=== PATIENT | male | born 1965 | race Caucasian/White ===

== ENCOUNTER 2018-02-21 10:51 | Emergency (ER) | payer BC ==
[~2018-02-21 10:51] MED LIST changes: -FOLI-68 PO; -MULT-1379 PO; -NIC10R INH; -NICOTROL CARTRIDGE PO; -THIA100T2 PO; -TRAZ150T8 PO
[2018-02-21] MEDS ORDERED: NS(*) 0.9% 1000 ML BAG 1,000 ML IV ONE ×2 (11:20→13:05)
[2018-02-21] MEDS ORDERED: LORazepam 2 MG/ML VIAL IVP ONE ×2 (11:20→12:40)
--- NOTE | 2018-02-21 11:22 | ER Report ---
History and Physical Time Seen By MD: 11:18 Hx. of Stated Complaint: EMS called for pt c/o L CP followed by collapse and generalized tonic/clonic activity with confusion afterwards. HPI/ROS CHIEF COMPLAINT: Brief loss of consciousness HISTORY OF PRESENT ILLNESS: This is a 52-year-old male who presents to the emergency department via EMS for a brief loss of consciousness. 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 Patient states that this is the typical pattern for his hypoglycemic episodes. According to EMS he had some chest pain and generalized tonic-clonic movement as well. When they did check his blood sugar it was in the 50s, although he was ambulating at this time and able to manage a basic conversation. While I'm talking to the patient he also states that he does drink daily, at least a sixpack and at least 3 ounces of tequila a day. He also smokes. Patient is also tearful, I did talk to the patient about suicidal thoughts, he's had thoughts in the past has also attempted suicide with a pistol but was unsuccessful. The patient states that yesterday and today he's had thoughts of shooting himself, he doesn't have access to firearms at his house. He states that today he locked his firearms up because he does not trust himself with the firearms. Patient is very tearful. The patient states that his last alcohol intake was around 2:30 or 3:00 this morning. He denies fevers or chills. He is dizzy and feels lightheaded. He states that he also hears voices. REVIEW OF SYSTEMS: Constitutional: No fever, no chills. Eyes: No discharge. ENT: No sore throat. Cardiovascular: As above. Respiratory: No cough, no shortness of breath. Gastrointestinal: No abdominal pain, no vomiting. Genitourinary: No hematuria. Musculoskeletal: No back pain. Skin: No rashes. Neurological: As above. Psych: As above. Allergies: Coded Allergies: No Known Drug Allergies (Unverified , 02/21/18) Home Meds Discontinued Scripts Cephalexin Monohydrate (CEPHALEXIN) 500 Mg Cap, 500 MG PO Q6H, #20 CAP 0 Refills Prov:LURDES LUNSFORD MD 01/21/17 Past Medical/Surgical History The patient has a past medical and surgical history of seizures, secondary to hypoglycemic events, arthritis, depression, anxiety, suicide attempt, cigarette smoking, daily alcohol consumption. Reviewed Nurses Notes: Yes Hx Smoking: Yes (3 DAILY) Smoking Status: Current: Every Day Smoker Hx Substance Use Disorder: Yes (MARIJUANA-RECREATIONAL) Hx Alcohol Use: Yes (DAILY 6 PACK) Constitutional Vital Sign - Last 24 Hours 02/21/18 02/21/18 02/21/18 02/21/18 10:51 11:01 11:06 11:08 Temp 98.3 Pulse ??? 86 80 Resp 23 16 B/P (MAP) 123/87 (99) 123/87 Pulse Ox 95 95 O2 Delivery Room Air 02/21/18 02/21/18 02/21/18 02/21/18 11:21 11:36 11:51 11:56 Pulse 87 96 82 77 Resp 16 13 23 11 Pulse Ox 89 91 90 91 02/21/18 02/21/18 02/21/18 02/21/18 12:11 12:16 12:21 12:26 Pulse 83 86 85 89 Resp 17 21 11 17 Pulse Ox 89 90 89 90 02/21/18 02/21/18 02/21/18 02/21/18 12:31 12:36 12:41 12:46 Pulse 85 88 100 92 Resp 10 10 11 12 B/P (MAP) 124/74 (91) Pulse Ox 92 92 94 92 02/21/18 02/21/18 02/21/18 02/21/18 14:25 14:25 14:40 14:55 Pulse 86 83 88 82 Resp 16 B/P (MAP) 139/87 (104) Pulse Ox 95 95 90 93 O2 Delivery Room Air 02/21/18 02/21/18 02/21/18 02/21/18 15:10 15:25 15:40 15:55 Pulse 86 86 85 90 Pulse Ox 92 94 93 91 02/21/18 16:10 Pulse 91 Pulse Ox 95 Physical Exam General Appearance: The patient is alert, has no immediate need for airway protection and no signs of toxicity, unkempt, shaky and tearful. Eyes: Pupils equal and round no pallor or injection. EOMs intact. 1-2 beats nystagmus in the right and left lateral gaze. ENT, Mouth: Mucous membranes are dry. Respiratory: There are no retractions, lungs are clear to auscultation. Cardiovascular: Regular rate and rhythm, no murmurs, clicks or rubs. Gastrointestinal: Abdomen is soft and non tender, no masses, bowel sounds normal. Neurological: Alert and oriented 4. Moving all extremities. Following all commands. No focal neuro deficits. Skin: Warm and dry, no rashes. Musculoskeletal: Neck is supple non tender. Extremities are nontender, nonswollen and have full range of motion. Psych: Patient making intermittent and I contact, tearful during our conversations. His voice does fluctuate in intensity however not in a threatening way. Patient's hands are his lap, picking at his thumbs and fingers, will move his legs occasionally, when he becomes tearful begins to curl up in a semi- type position. We'll then relax and began to interact again. DIFFERENTIAL DIAGNOSIS: After history and physical exam differential diagnosis was considered for chest pain including but not limited to myocardial ischemia, anxiety, pericarditis pulmonary embolus, chest wall pain, pleural inflammation and pulmonary infectious causes.weakness including but not limited to electrolyte abnormality, depression, anxiety, CVA, spinal cord abnormality, and infectious causes. Suicidal ideation. Medical Decision Making Data Points Result Diagram: 02/21/18 1050 02/21/18 1050 Laboratory Hematology Test 02/21/18 10:50 02/21/18 12:00 02/21/18 14:21 Red Blood Count 5.29 M/uL (4.00-5.60) Mean Corpuscular Volume 100.1 fL (80.0-96.0) Mean Corpuscular Hemoglobin 33.9 pg (26.0-33.0) Mean Corpuscular Hemoglobin Concent 33.9 g/dL (32.0-36.0) Red Cell Distribution Width 14.0 % (11.5-14.5) Mean Platelet Volume 9.8 fL (7.2-11.1) Neutrophils (%) (Auto) 76.0 % (39.4-72.5) Lymphocytes (%) (Auto) 15.8 % (17.6-49.6) Monocytes (%) (Auto) 6.5 % (4.1-12.4) Eosinophils (%) (Auto) 1.2 % (0.4-6.7) Basophils (%) (Auto) 0.5 % (0.3-1.4) Nucleated RBC Relative Count (auto) 0.1 /100WBC Neutrophils # (Auto) 8.5 K/uL (2.0-7.4) Lymphocytes # (Auto) 1.8 K/uL (1.3-3.6) Monocytes # (Auto) 0.7 K/uL (0.3-1.0) Eosinophils # (Auto) 0.1 K/uL (0.0-0.5) Basophils # (Auto) 0.1 K/uL (0.0-0.1) Nucleated RBC Absolute Count (auto) 0.01 K/uL Sodium Level 145 mmol/L (137-145) Potassium Level 4.1 mmol/L (3.5-5.0) Chloride Level 105 mmol/L (98-107) Carbon Dioxide Level 21 mmol/L (22-30) Blood Urea Nitrogen 22 mg/dl (9-21) Creatinine 1.00 mg/dl (0.66-1.25) Glomerular Filtration Rate Calc > 60.0 Random Glucose 74 mg/dl (75-110) Calcium Level 9.6 mg/dl (8.4-10.2) Magnesium Level 2.5 mg/dl (1.7-2.2) Total Bilirubin 0.5 mg/dl (0.2-1.3) Aspartate Amino Transf (AST/SGOT) 30 U/L (0-35) Alanine Aminotransferase (ALT/SGPT) 35 U/L (0-56) Alkaline Phosphatase 74 U/L (0-126) Troponin I < 0.012 ng/ml Total Protein 7.5 g/dl (6.3-8.2) Albumin 4.6 g/dl (3.5-5.0) Salicylates Level < 10 mg/L Salicylate Last Dose Date unk Acetaminophen Level < 10 ug/ml Serum Alcohol 81 mg/dl Whole Blood Glucose 148 mg/DL (75-110) Urine Color Yellow Urine Clarity Clear Urine pH 6.0 pH (4.8-9.5) Urine Specific [place] 1.013 Urine Protein Negative mg/dL (NEGATIVE) Urine Glucose (UA) Negative mg/dL (NEGATIVE) Urine Ketones 20 mg/dL (NEGATIVE) Urine Blood Small (NEGATIVE) Urine Nitrite Negative (NEGATIVE) Urine Bilirubin Negative (NEGATIVE) Urine Urobilinogen Negative mg/dL (0.2-1.9) Urine Leukocyte Esterase Negative (NEGATIVE) Urine RBC 5 /HPF (0-2/HPF) Urine WBC <1 /HPF (0-5/HPF) Urine Squamous Epithelial Cells None /LPF (</=FEW) Urine Bacteria Negative /HPF (NONE-FEW) Urine Mucus Few /HPF (NONE-FEW) Urine Opiates Screen Negative Urine Barbiturates Screen Negative Ur Tricyclic Antidepressants Screen Negative Urine Phencyclidine Screen Negative Urine Amphetamines Screen Negative Urine Benzodiazepines Screen Negative Urine Cocaine Screen Negative Urine Cannabinoids Screen Positive Chemistry Test 02/21/18 10:50 02/21/18 12:00 02/21/18 14:21 White Blood Count 11.2 k/uL (4.5-11.0) Red Blood Count 5.29 M/uL (4.00-5.60) Hemoglobin 17.9 g/dL (14.0-18.0) Hematocrit 53.0 % (42.0-52.0) Mean Corpuscular Volume 100.1 fL (80.0-96.0) Mean Corpuscular Hemoglobin 33.9 pg (26.0-33.0) Mean Corpuscular Hemoglobin Concent 33.9 g/dL (32.0-36.0) Red Cell Distribution Width 14.0 % (11.5-14.5) Platelet Count 278 K/uL (150-450) Mean Platelet Volume 9.8 fL (7.2-11.1) Neutrophils (%) (Auto) 76.0 % (39.4-72.5) Lymphocytes (%) (Auto) 15.8 % (17.6-49.6) Monocytes (%) (Auto) 6.5 % (4.1-12.4) Eosinophils (%) (Auto) 1.2 % (0.4-6.7) Basophils (%) (Auto) 0.5 % (0.3-1.4) Nucleated RBC Relative Count (auto) 0.1 /100WBC Neutrophils # (Auto) 8.5 K/uL (2.0-7.4) Lymphocytes # (Auto) 1.8 K/uL (1.3-3.6) Monocytes # (Auto) 0.7 K/uL (0.3-1.0) Eosinophils # (Auto) 0.1 K/uL (0.0-0.5) Basophils # (Auto) 0.1 K/uL (0.0-0.1) Nucleated RBC Absolute Count (auto) 0.01 K/uL Glomerular Filtration Rate Calc > 60.0 Calcium Level 9.6 mg/dl (8.4-10.2) Magnesium Level 2.5 mg/dl (1.7-2.2) Total Bilirubin 0.5 mg/dl (0.2-1.3) Aspartate Amino Transf (AST/SGOT) 30 U/L (0-35) Alanine Aminotransferase (ALT/SGPT) 35 U/L (0-56) Alkaline Phosphatase 74 U/L (0-126) Troponin I < 0.012 ng/ml Total Protein 7.5 g/dl (6.3-8.2) Albumin 4.6 g/dl (3.5-5.0) Salicylates Level < 10 mg/L Salicylate Last Dose Date unk Acetaminophen Level < 10 ug/ml Serum Alcohol 81 mg/dl Whole Blood Glucose 148 mg/DL (75-110) Urine Color Yellow Urine Clarity Clear Urine pH 6.0 pH (4.8-9.5) Urine Specific [place] 1.013 Urine Protein Negative mg/dL (NEGATIVE) Urine Glucose (UA) Negative mg/dL (NEGATIVE) Urine Ketones 20 mg/dL (NEGATIVE) Urine Blood Small (NEGATIVE) Urine Nitrite Negative (NEGATIVE) Urine Bilirubin Negative (NEGATIVE) Urine Urobilinogen Negative mg/dL (0.2-1.9) Urine Leukocyte Esterase Negative (NEGATIVE) Urine RBC 5 /HPF (0-2/HPF) Urine WBC <1 /HPF (0-5/HPF) Urine Squamous Epithelial Cells None /LPF (</=FEW) Urine Bacteria Negative /HPF (NONE-FEW) Urine Mucus Few /HPF (NONE-FEW) Urine Opiates Screen Negative Urine Barbiturates Screen Negative Ur Tricyclic Antidepressants Screen Negative Urine Phencyclidine Screen Negative Urine Amphetamines Screen Negative Urine Benzodiazepines Screen Negative Urine Cocaine Screen Negative Urine Cannabinoids Screen Positive Toxicology Test 02/21/18 10:50 02/21/18 14:21 Salicylates Level < 10 mg/L Salicylate Last Dose Date unk Acetaminophen Level < 10 ug/ml Serum Alcohol 81 mg/dl Urine Opiates Screen Negative Urine Barbiturates Screen Negative Ur Tricyclic Antidepressants Screen Negative Urine Phencyclidine Screen Negative Urine Amphetamines Screen Negative Urine Benzodiazepines Screen Negative Urine Cocaine Screen Negative Urine Cannabinoids Screen Positive Urinalysis Test 02/21/18 14:21 Urine Color Yellow Urine Clarity Clear Urine pH 6.0 pH (4.8-9.5) Urine Specific [place] 1.013 Urine Protein Negative mg/dL (NEGATIVE) Urine Glucose (UA) Negative mg/dL (NEGATIVE) Urine Ketones 20 mg/dL (NEGATIVE) Urine Blood Small (NEGATIVE) Urine Nitrite Negative (NEGATIVE) Urine Bilirubin Negative (NEGATIVE) Urine Urobilinogen Negative mg/dL (0.2-1.9) Urine Leukocyte Esterase Negative (NEGATIVE) Urine RBC 5 /HPF (0-2/HPF) Urine WBC <1 /HPF (0-5/HPF) Urine Squamous Epithelial Cells None /LPF (</=FEW) Urine Bacteria Negative /HPF (NONE-FEW) Urine Mucus Few /HPF (NONE-FEW) EKG/Imaging EKG Interpretation 12 lead EKG: EKG 11:00. Rhythm: Sinus rhythm, ventricular rate 94 bpm. [place]: normal QRS: normal ST segments: No C depression or elevation identified. Poor T-wave progression in the V leads. Underlying artifact from tremors, no previous EKGs for comparison. ED Course/Re-evaluation Clinical Indication for ER IV: Hydration, IV Access ED Course The patient was admitted to room via EMS. A history and physical obtained. Differential diagnoses were considered. An IV was started. A CBC, CMP, troponin were obtained.CBC showing white count of 11.2, MCV 100.1, MCH 33.9, chemistry showing CO2 21, BUN 22 creatinine 1.0 normal AST ALT. Serum alcohol 81, positive for cannabis, UA unremarkable other than ketones and small blood. The patient had a long discussion about his alcohol consumption, his lifestyle and more concerning was his suicidal thoughts, especially as of late and with his access to firearms and his previous attempt by firearm. I did tell him I was very concerned about this and recommended that he stay in the hospital either on his own or I would need to detain him. The patient ultimately decided to sign voluntarily, he does realize now that he does need help, he's never been evaluated according to the patient for depression or anxiety,. Patient was very tearful during our conversations, I did tell the patient I feel that he would definitely benefit from an admission to behavioral health unit. Patient does agree. The patient was very anxious when he arrived, I did give him a total of 2 mg IV Ativan with 1 oral Ativan. Patient is resting comfortably at this time, less anxious. Patient was also given a 1 L normal saline bolus. I did speak with Skye Alas as noted below, she is accepted the patient into the behavioral health unit for suicidal ideations and depression. 02/21/2018 3:14:29 pm I reviewed the case with Skye Alas she has accepted the patient into the unit. He has signed in voluntarily. Decision to Disposition Date: Feb 21, 2018 Decision to Disposition Time: 15:15 Depart Departure Latest Vital Signs Vital Signs Date Time Temp Pulse Resp B/P (MAP) Pulse Ox O2 Delivery O2 Flow Rate FiO2 02/21/18 16:10 91 95 02/21/18 14:25 16 139/87 (104) Room Air 02/21/18 11:08 98.3 Impression: Primary Impression: Suicidal ideations Additional Impressions: Hypoglycemia Syncope Condition: Stable Disposition: XFER TO [facility] Referrals: ELIF SANCHEZ (PCP) New Scripts No Active Prescriptions or Reported Meds Problem Qualifiers Additional Impressions: Syncope Syncope type: unspecified Qualified Codes: R55 - Syncope and collapse SUKHJINDER VENEGASP-BC Feb 21, 2018 11:22
[2018-02-21 11:36] LABS: PLATELET COUNT, AUTOMATED 278 K/uL (150-450)
--- NOTE | 2018-02-21 11:42 | EKG ---
FACILITY: [facility] PATIENT NAME: DEIDRE LANG : [id number] MR: [id number] V: [id number] EXAM DATE: ORDERING PHYSICIAN: SUKHJINDER VENEGAS TECHNOLOGIST: MYRNA Test Reason : CP Blood Pressure : / mmHG Vent. Rate : 094 BPM Atrial Rate : 094 BPM P-R Int : 136 ms QRS Dur : 082 ms QT Int : 366 ms P-R-T Axes : 080 085 025 degrees QTc Int : 457 ms Sinus rhythm with premature ventricular complexes Otherwise normal ECG No previous ECGs available Confirmed by Jhonathan Mane ([id number]) on 02/21/2018 4:22:52 PM Referred By: JONATHON Confirmed By:Jhonathan Rodriguez
[2018-02-21] MEDS ORDERED: LORazepam 1 MG TAB PO ONE (12:40)
[2018-02-21] MEDS ORDERED: ONDANSETRON 4 MG ODT TABDP SL ONE (13:25)
[2018-02-21 14:25] VITALS: BP 139/87
== END 2018-02-21 16:14 | disposition other institution (70) ==
LOC: ER 11:07
DX: R45.851 Suicidal ideations (principal); E16.2 Hypoglycemia, unspecified; R55 Syncope and collapse
CPT/HCPCS: 36416; 80305; 80320; 80329; 81001; 82948; 83735; 84443; 84484; 85025; 93005; 96361; 96374; 96376; 99284; J2060; J7030; S0119; 82040; 82247; 82310; 82374; 82435; 82565; 82947; 84075; 84132; 84155; 84295; 84450; 84460; 84520

== ENCOUNTER 2018-02-21 15:33 | Inpatient (IN) | payer BC ==
[~2018-02-21] VITALS: Ht 188 cm; Wt 63.5 kg
[~2018-02-21 15:33] MED LIST changes: +HYDR-4309 PO; -HYDR-653 PO
[2018-02-21] MEDS ORDERED: NICOTINE CARTRIDGE 1 EA PO PRN (16:20)
[2018-02-21] MEDS ORDERED: NICOTINE INH SYSTEM 10 MG/INH INH PRN (16:20)
[2018-02-21 16:29] VITALS: BP 131/83
[2018-02-21] MEDS ORDERED: MAG HYD/AL HYD/SIMETH 30ML UDC PO PRN (16:35)
[2018-02-21] MEDS ORDERED: INFLUENZA VIRUS VAC 0.5ML SYR IM ONLY ONE (18:45)
[2018-02-21 20:56] VITALS: BP 111/70
[2018-02-22 06:15] VITALS: BP 143/88
[2018-02-22] MEDS: THIAMINE HCL 100 MG TAB PO SCH (08:22)
[2018-02-22] MEDS: MULTIVITAMINS PO SCH (08:23)
[2018-02-22] MEDS: FOLIC ACID 1 MG TAB PO SCH (08:23)
[2018-02-22 08:30] VITALS: BP 132/93
[2018-02-22] MEDS: DIAZEPAM 10 MG TAB PO PRN ×3 (10:16→21:01)
[2018-02-22 17:14] VITALS: BP 122/80
[2018-02-22] MEDS ORDERED: traZODone HCL 50 MG TAB PO SCH (21:00)
[2018-02-22 21:07] VITALS: BP 100/55
[2018-02-23 06:00] VITALS: BP 113/70
[2018-02-23] MEDS: FOLIC ACID 1 MG TAB PO SCH (08:10)
[2018-02-23] MEDS: MULTIVITAMINS PO SCH (08:10)
[2018-02-23] MEDS: THIAMINE HCL 100 MG TAB PO SCH (08:10)
[2018-02-23] MEDS: DIAZEPAM 10 MG TAB PO PRN (09:39)
[2018-02-23 10:00] VITALS: BP 111/84
[2018-02-23] MEDS ORDERED: TRAZ150T8 PO (10:10)
[2018-02-23] MEDS ORDERED: FOLI-68 PO (10:11)
[2018-02-23] MEDS ORDERED: MULT-1379 PO (10:11)
[2018-02-23] MEDS ORDERED: THIA100T2 PO (10:12)
[2018-02-23] MEDS ORDERED: NIC10R INH (10:18)
[2018-02-23] MEDS ORDERED: NICOTROL CARTRIDGE PO (10:18)
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
[2018-02-23 14:00] VITALS: BP 120/80
--- NOTE | 2018-02-25 17:03 | SCHAAF DISCHARGE ---
DATE OF ADMISSION: February 21, 2018 DATE OF DISCHARGE: February 23, 2018 ATTENDING PHYSICIAN Tyron Monterroso MD Patient was seen approximately 0830 hours on 23 February 2018 for note concerning this dictation. FINAL DIAGNOSES 1. Alcohol use disorder, moderate to severe. 2. Cannabis use disorder, severe. 3. 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 4. Patient known to have a supportive relationship with his significant other. REASON FOR ADMISSION This is a very polite, cooperative, 52-year-old male who was admitted for alcohol withdrawal management and low mood. Patient was admitted voluntarily without incident. Alcohol withdrawal was treated to completion and considered mild in nature. Patient took an active role in his treatment throughout his stay. Focus was on heavy cannabis use and alcohol use and its negative effects on this patient's thought processes. Patient responded to trazodone at night for sleep. Suicidal ideations and any other psychiatric concerns largely resolved. Patient did not want to go to residential rehab for alcohol and drug dependence at time of discharge. Please see H and P for full details. PHYSICAL EXAMINATION Please see emergency room note. Notable for: GENERAL: A 52-year-old male in no acute medical distress. VITAL SIGNS: Vital signs at the time of admission, temperature 98.3, pulse 80, respiratory rate 16, blood pressure 123/87, and pulse oximetry 95 on room air. At time of discharge from [facility], vital signs showed temperature 98.1, pulse 86, respiratory rate 18, blood pressure 120/80, and pulse oximetry 94 on room air. LABORATORY DATA PSA noted to be 0.60, in normal limits. TSH noted to be 2.90, in normal limits. Magnesium low at 2.5. Hematocrit elevated at 53.0. MCV and MCH elevated at 100.1 and 33.9. Toxicology screen positive for cannabis upon admission. Serum alcohol level of 81. Ketones in the urine were small. Urine blood. Otherwise unremarkable urinalysis. MENTAL STATUS EXAMINATION GENERAL APPEARANCE, BEHAVIOR, AND ATTITUDE: At time of discharge, this is a very polite, cooperative, and appreciative 52-year-old male, interacting well with this provider, other staff members, and his significant other in the room. No bizarre mannerisms or tics. Making good eye contact. No psychomotor agitation or retardation. SPEECH: Within normal limits. Regular rate, rhythm, volume, and tone. MOOD: Described as improved. AFFECT: Full at times and mood congruent. THOUGHT PROCESSES: Goal directed, logical. Patient indicating a desire to abstain from substances and alcohol in the future. No loose associations or flight of ideas. THOUGHT CONTENT: Free of hallucinations, ideas of reference, thought broadcasting, delusions, obsessions, compulsions. Patient adamantly denying suicidal or homicidal ideation. SENSORIUM: Clear. COGNITION: Alert and oriented to person, place, time, situation. MEMORY: Immediate, recent, remote estimated intact. INTELLIGENCE: Average based on interview. INSIGHT AND JUDGMENT: Considered grossly intact and appropriate for ongoing outpatient management in the absence of alcohol or cannabis use. RESULTS OF TESTING IMAGING: None. LABORATORY DATA: See above. PSYCHOLOGICAL TESTING: Not done. CONSULTATIONS None. TREATMENT Patient received medications, participated in individual and group therapy. HOSPITAL COURSE Patient's alcohol withdrawal treated to completion with [place] protocol and diazepam, considered mild in nature. Patient was started on trazodone with good results for sleep and low mood. Alcohol withdrawal again considered complete at time of discharge. CONDITION OF PATIENT ON DISCHARGE Stable. Considered a minimal risk to himself or others in the absence of alcohol use or illicit substance use. DISPOSITION The patient discharged to home in care of his significant other. He would follow up with continued outpatient medications for medication management and outpatient therapy. Patient was encouraged to go to and obtain a sponsor. He agreed to abstain from alcohol, cannabis, or any other substances. He was given the crisis line should symptoms return. MEDICATIONS AT TIME OF DISCHARGE 1. Trazodone 150 to 300 mg at bedtime. 2. Folic acid 1 mg daily. 3. Multivitamin with minerals daily. 4. Thiamine 100 mg daily. 5. Patient was encouraged to abstain from nicotine consumption as well and was encouraged to continue with nicotine replacement over the counter. MTDD
== END 2018-02-23 17:15 | disposition home or self-care (01) | DRG 897 ==
LOC: BHS 15:33
PROVIDERS: ADMIT Registered Nurse Psychiatric/Mental Health, Adult; ATTEND Registered Nurse Psychiatric/Mental Health, Adult
DX: F10.230 Alcohol dependence with withdrawal, uncomplicated (principal); R45.851 Suicidal ideations; F33.1 Major depressive disorder, recurrent, moderate; F12.20 Cannabis dependence, uncomplicated; F17.210 Nicotine dependence, cigarettes, uncomplicated; F12.220 Cannabis dependence with intoxication, uncomplicated; Y90.4 Blood alcohol level of 80-99 mg/100 ml; Z23 Encounter for immunization; Z59.9 Problem related to housing and economic circumstances, unspecified; Z81.1 Family history of alcohol abuse and dependence; Z81.8 Family history of other mental and behavioral disorders; Z91.5 Personal history of self-harm
CPT/HCPCS: 84153; 90471; 90674

== ENCOUNTER → 2018-02-21 | Outpatient (CLI) | payer BC ==
[~2018-02-21] MED LIST: CEP500 PO; CEPH500C24 PO; CYCL10TA29 PO; FOLI-68 PO; HYDR-2946 PO; HYDR-653 PO; IBUP600T22 PO; LOR5/325 PO; MULT-1379 PO; NIC10R INH; NICOTROL CARTRIDGE PO; THIA100T2 PO; TRAZ150T8 PO; [UNRECOGNIZED DRUG - REMARK]
== END ==
LOC: AMB 10:22
PROVIDERS: ATTEND Nurse Practitioner
DX: G40.901 Epilepsy, unspecified, not intractable, with status epilepticus (principal); R07.9 Chest pain, unspecified; R41.0 Disorientation, unspecified
CPT/HCPCS: A0425; A0427